=== PATIENT | male | born 1935 | race Caucasian/White ===

== ENCOUNTER 2018-08-06 09:57 | Observation (INO) | payer MEDICARE, BC ==
[~2018-08-06] VITALS: Ht 177.8 cm; Wt 78.0 kg
[2018-08-06] MEDS ORDERED: METHOTREXATE2.5 MG PO (10:15)
[2018-08-06] MEDS ORDERED: BAYER CHEWABLE81 MG PO (10:15)
[2018-08-06] MEDS ORDERED: ALTACE10 MG PO (10:16)
[2018-08-06] MEDS ORDERED: FOLIC ACID1 MG PO (10:16)
[2018-08-06] MEDS ORDERED: HYDROCHLOROTHIA25 MG PO (10:17)
[2018-08-06] MEDS ORDERED: ARICEPT23 MG PO (10:17)
[2018-08-06] MEDS ORDERED: ISOSORBIDE MONO30 M1 PO (10:17)
[2018-08-06] MEDS ORDERED: VITAMIN D31000 UNIT PO (10:18)
[2018-08-06] MEDS ORDERED: GLUCOSAMINE HC500 MG PO (10:18)
[2018-08-06] MEDS ORDERED: MULTI-DAY VITAM1 TAB (10:18)
[2018-08-06] MEDS ORDERED: POTASSIUM99 M1 PO (10:19)
[2018-08-06 10:21] LABS: HEMATOCRIT 38.2 % (42.0-54.0); HEMOGLOBIN 12.9 g/dL (13.5-17.5); IMMATURE GRANULOCYTES 0.3 % (0-5); MCH 33.4 pg (26.0-34.0); MCHC 33.8 g/dL (31.0-37.0); MEAN PLATELET VOLUME 9.9 fL (7.4-10.4); PLATELET COUNT 217 10x3/uL (130-400); RBC 3.86 10x6/uL (4.20-6.10); RDW 13.8 % (11.5-14.5); WBC 5.8 10x3/uL (4.8-10.8)
[2018-08-06 10:39] LABS: ALBUMIN 3.2 g/dL (3.4-5.0); ALKALINE PHOSPHATASE 80 U/L (46-116); ALT (SGPT) 24 U/L (10-68); BILIRUBIN - TOTAL 0.44 mg/dL (0.2-1.3); CALC OSMOLALITY 271 mosm/kg (275-300); CALCIUM 8.8 mg/dL (8.5-10.1); CARBON DIOXIDE 28.2 mmol/L (21.0-32.0); CHLORIDE - SERUM 99 mmol/L (98-107); CREATININE - SERUM 0.8 mg/dL (0.6-1.3); GLUCOSE 82 mg/dL (74-106); POTASSIUM - SERUM 3.9 mmol/L (3.5-5.1); PROTEIN - SERUM 6.2 g/dL (6.4-8.2); SODIUM 135 mmol/L (136-145); UREA NITROGEN 22 mg/dL (7-18); eGFR NON AFRICAN AMERICAN > 90 mL/min (90-120)
[2018-08-06 10:40] LABS: APTT 29.3 SECONDS (22.8-39.4); INR 1.21 (0.85-1.17); PROTIME 14.8 SECONDS (11.6-15.0)
--- NOTE | 2018-08-06 10:40 | NUR ---
TPA NOT ADMINISTERED AT THIS TIME PER MYRIAM SEPULVEDA. PT STABLE, DENIES NEEDS. CALL LIGHT WITHIN REACH. FOR FURTHER INFORMATION REFER TO DOCTOR NOTE ABOUT MYRIAM.
[2018-08-06 10:50] LABS: CKMB 1.3 U/L (0.0-3.6); CREATINE KINASE 61 UL (21-232); MAGNESIUM - SERUM 1.8 mg/dL (1.8-2.4); THYROID STIMULATING HORMONE 2.17 uIU/mL (0.36-3.74)
[2018-08-06 10:51] LABS: TROPONIN-I < 0.017 ng/mL (0.000-0.060)
--- NOTE | 2018-08-06 11:01 | NUR ---
STROKE BAND [id number]
[2018-08-06 11:10] LABS: LYMPHOCYTES 16 % (15-50); MONOCYTES 14 % (2-11); NEUTROPHILS 70 % (40-80); PLATELET ESTIMATE NORMAL
[2018-08-06 11:41] VITALS: BP 100/72
[2018-08-06 12:20] VITALS: BP 102/62
--- NOTE | 2018-08-06 12:25 | NUR ---
PT GONE TO CT AT THIS TIME.
--- NOTE | 2018-08-06 13:16 | NUR ---
PT REPORT HANDED OFF TO FREDERIC, FLOOR NURSE ROOM [id number]. PT STABLE AT TRANSPORT.
--- NOTE | 2018-08-06 14:00 | NUR ---
RECEIVED PT FROM ER. POSSIBLE CVA. NO C/O PAIN. NO S/S OF ACUTE DISTRESS NOTED. ON 2L O2, NC. VITALS STABLE. T 98.0,HR 70, BP 130/77, R 18, O2 SAT 91% 2L NC. PT C/O BLURRED VISION, NUMBNESS AND RIGHT SIDED WEAKNESS. SYMPTOMS SEEMED TO HAVE RESOLVED. PT ALERT AND ORIENTED. AT BEDSIDE. HX OF DEMENTIA. IV TO LEFT FOREARM, SL, SITE PATENT WITHOUT REDNESS OR SWELLING. PT DENIES ANYTHING FURTHER AT THIS TIME. FALL PRECAUTION, ZAKI ALARM ON AND WORKING. CALL LIGHT IN REACH. WILL CONTINUE TO MONTIOR.
[2018-08-06 14:23] VITALS: BMI 24.7
[2018-08-06 16:49] VITALS: BP 113/67
[2018-08-06 17:13] LABS: CHOL - HDL RATIO 2.7 ratio (2.3-4.9); LDL-HDL RATIO 1.6 ratio (1.5-3.5)
--- NOTE | 2018-08-06 17:36 | NUR ---
PT RESTING IN BED, EYES OPEN. NO C/O PAIN. NO S/S OF ACUTE DISTRESS NOTED. AT BEDSIDE. PT DENIES ANYTHING FURTHER AT THIS TIME. CALL LIGHT IN REACH. WILL CONTINUE TO MONITOR.
[2018-08-06 21:34] VITALS: BP 134/79
--- NOTE | 2018-08-07 00:37 | NUR ---
A/OX4. BREATHING EVEN AND UNLABORED. AT BEDSIDE. RESITED IV TO LT F/A WITH 20GA FOR CONTRAST IMAGE. DENIES NEEDS. WILL CONTINUE POC.
--- NOTE | 2018-08-07 02:21 | NUR ---
ASSISTED PT TO SIDE OF BED TO USE URINAL. DENIES OTHER NEEDS. WILL CONTINUE POC.
[2018-08-07 06:18] LABS: BASOPHILS 0.2 % (0-2); EOSINOPHILS 2.5 % (0-7); HEMATOCRIT 37.5 % (42.0-54.0); HEMOGLOBIN 12.7 g/dL (13.5-17.5); IMMATURE GRANULOCYTES 0.2 % (0-5); LYMPHOCYTES 21.2 % (15-50); MCH 33.2 pg (26.0-34.0); MCHC 33.9 g/dL (31.0-37.0); MCV 97.9 fL (80.0-100.0); MONOCYTES 19.9 % (2-11); PLATELET COUNT 208 10x3/uL (130-400); RBC 3.83 10x6/uL (4.20-6.10); WBC 5.3 10x3/uL (4.8-10.8)
[2018-08-07 06:31] LABS: CALC OSMOLALITY 272 mosm/kg (275-300); CALCIUM 8.4 mg/dL (8.5-10.1); CARBON DIOXIDE 27.3 mmol/L (21.0-32.0); CHLORIDE - SERUM 101 mmol/L (98-107); CREATININE - SERUM 0.6 mg/dL (0.6-1.3); GLUCOSE 94 mg/dL (74-106); POTASSIUM - SERUM 3.6 mmol/L (3.5-5.1); SODIUM 136 mmol/L (136-145); UREA NITROGEN 16 mg/dL (7-18); eGFR NON AFRICAN AMERICAN > 90 mL/min (90-120)
[2018-08-07 08:45] VITALS: BP 143/81
--- NOTE | 2018-08-07 08:45 | NUR ---
PATIENT IN BED WITH NO COMPLAINTS OR SIGNS OF DISTRESS AT THIS TIME. IV INTACT. BSCDS ON AND WORKING. CALL LIGHT WITHIN REACH.
--- NOTE | 2018-08-07 12:30 | NUR ---
PATIENT SITTING UP IN BED EATING AT THIS TIME. NO COMPLAINTS OR SIGNS OF DISTRESS. IV INTACT. CALL LIGHT FRITZ LIMON.
[2018-08-07 12:47] VITALS: BP 132/72
--- NOTE | 2018-08-07 13:41 | MORECARE ---
CASE MANAGEMENT DISCHARGE SUMMARY PATIENT: TILA MCCARTY UNIT: [id number] ADM DATE: 08/06/18 AGE: 82 : 33 SEX: M ROOM/BED: D.2235 AUTHOR: ROLAND WOODALL PHYSICIAN: REFERRING PHYSICIAN: NILES MERCEDES MD DATE OF SERVICE: 08/07/18 Discharge Plan Patient Name: TILA MCCARTY Facility: [facility]:[place] : 1935 Planned Disposition: Home Anticipated Discharge Date: Discharge Date: Expected LOS: Initial Reviewer: [id number] Initial Review Date: 08/07/2018 Generated: 08/07/18 2:41 pm Coverage Notice Reviewer: [id number] - Nancy Fierro Notice Issued Date-Time: 08/07/2018 13:32 Notice Type: Medicare Outpatient Observation Notice Notice Delivered To: Family Member Relationship to Patient: Spouse Jockey'S Agent Name: Stella Delivery Method: HAND - Hand Delivered Shania Days: Prior Verbal Notification: Recipient Understood Notice: Yes Recipient Signature: Yes Med Rec Note Co-signed by Attending: Coverage Notice Comment: [place] explained, signed by per request, copy given, original placed in MR Patient Name: TILA MCCARTY Page 29923 at 1341 All edits/amendments must be made on the electronic document DICTATION DATE: 08/07/18 1341 HAND WINDER: ARABELLA 08/07/18 1341 RPT#: [id number] [place] DATE: STATUS: ADM IN [facility] [address] [place] [address] END OF REPORT
--- NOTE | 2018-08-07 13:48 | MORECARE ---
CASE MANAGEMENT DISCHARGE SUMMARY PATIENT: TILA MCCARTY UNIT: [id number] ADM DATE: 08/06/18 AGE: 82 : 33 SEX: M ROOM/BED: D.2235 AUTHOR: JOSE C,DOC PHYSICIAN: REFERRING PHYSICIAN: NILES MERCEDES MD DATE OF SERVICE: 08/07/18 Discharge Plan Patient Name: TILA MCCARTY Facility: [facility]:[place] : 1935 Planned Disposition: Home Anticipated Discharge Date: Discharge Date: Expected LOS: Initial Reviewer: [email or web address] Initial Review Date: 08/07/2018 Generated: 08/07/18 2:48 pm Comments DCP- Discharge Planning Updated by [email or web address]: Nancy Fierro on 08/07/18 12:[address] Patient Name: TILA MCCARTY Admission Status: ER Accout number: [id number] Admission Date: 08-06-2018 : 1935 Admission Diagnosis: Attending: NILES MERCEDES Current LOS: 1 Anticipated DC Date: Planned Disposition: Home Primary Insurance: MEDICARE A & B Discharge Planning Comments: CM met with patient and his to discuss discharge planning/needs. States he lives with his . He is independent with all ADL's. He has a cane, but does not use it. He no longer drives, his and friends drive him where he needs to go. I discussed availability of rehab, SNF and home health. He plans on returning home with his , declines home health. CM will continue to follow and assist with discharge planning/needs. Ophthalmic Medical Assistant: Nancy Fierro DCPIA - Discharge Planning Initial Assessment Updated by [id number]: Nancy Fierro on 08/07/18 1:44 pm * Is the patient Alert and Oriented? Yes * How many steps to enter\exit or inside your home? 0/0 * PCP Grazyna * Pharmacy [facility] [address] * Preadmission Environment Home with Family * ADLs Independent * Equipment Cane * List name and contact numbers for known caregivers / representatives who currently or will assist patient after discharge: Stella sawant - [phone] * Verbal permission to speak to the caregivers and representatives has been obtained from the patient. Yes * Community resources currently utilized None * Additional services required to return to the preadmission environment? No * Can the patient safely return to the preadmission environment? Yes * Has this patient been hospitalized within the prior 30 days at any hospital? No Coverage Notice Reviewer: [id number] Stas Fierro Notice Issued Date-Time: 08/07/2018 13:32 Notice Type: Medicare Outpatient Observation Notice Notice Delivered To: Family Member Relationship to Patient: Spouse Machine Lay Out Worker Name: Stella Delivery Method: HAND - Hand Delivered Shania Days: Prior Verbal Notification: Recipient Understood Notice: Yes Recipient Signature: Yes Med Rec Note Co-signed by Attending: Coverage Notice Comment: YOKO explained, signed by per request, copy given, original placed in MR Last DP export: 08/07/18 12:41 p Patient Name: TILA MCCARTY Page [id number] at 1348 All edits/amendments must be made on the electronic document DICTATION DATE: 08/07/187 IT SENIOR ANALYST: ARABELLA 08/07/18 1347 RPT#: [id number] DC DATE: STATUS: ADM IN [facility] [address] [place] [address] END OF REPORT
[2018-08-07 14:28] VITALS: Ht 177.8 cm; Wt 78.0 kg
[2018-08-07] MEDS ORDERED: ASPIRIN325 MG PO (16:48)
[2018-08-07 16:53] VITALS: BP 149/86
--- NOTE | 2018-08-07 18:04 | NUR ---
PATIENT AND RECIEVED DISCHARGE INSTRUCTIONS. VERBALIZED UNDERSTANDING, NO QUESTIONS AT THIS TIME. IV REMOVED WITH CATH TIP INTACT. CALL LIGHT WITHIN REACH. GETTING DRESSED ASSISTED BY AT THIS TIME.
--- NOTE | 2018-08-12 07:06 | MORECARE ---
CASE MANAGEMENT DISCHARGE SUMMARY PATIENT: TILA MCCARTY UNIT: [id number] ADM DATE: 08/06/18 AGE: 83 : 33 SEX: M ROOM/BED: D.2235 AUTHOR: JOSE CDOC PHYSICIAN: REFERRING PHYSICIAN: NILES MERCEDES MD DATE OF SERVICE: 08/12/18 Discharge Plan Patient Name: TILA MCCARTY Facility: [facility]:[place] : 1935 Planned Disposition: Home Anticipated Discharge Date: Discharge Date: 08/07/2018 Expected LOS: 0 Initial Reviewer: [email or web address] Initial Review Date: 08/07/2018 Generated: 08/12/18 8:06 am Comments DCP- Discharge Planning Updated by [email or web address]: Nancy Fierro on 08/07/18 12:[address] Patient Name: TILA MCCARTY Admission Status: ER Accout number: [id number] Admission Date: 08-06-2018 : 1935 Admission Diagnosis: Attending: NILES MERCEDES Current LOS: 1 Anticipated DC Date: Planned Disposition: Home Primary Insurance: MEDICARE A & B Discharge Planning Comments: CM met with patient and his to discuss discharge planning/needs. States he lives with his . He is independent with all ADL's. He has a cane, but does not use it. He no longer drives, his and friends drive him where he needs to go. I discussed availability of rehab, SNF and home health. He plans on returning home with his , declines home health. CM will continue to follow and assist with discharge planning/needs. Environmental Education Specialist: Nancy Fierro DCPIA - Discharge Planning Initial Assessment Updated by [id number]: Nancy Fierro on 08/07/18 1:44 pm * Is the patient Alert and Oriented? Yes * How many steps to enter\exit or inside your home? 0/0 * PCP Grazyna * Pharmacy [facility] [address] * Preadmission Environment Home with Family * ADLs Independent * Equipment Cane * List name and contact numbers for known caregivers / representatives who currently or will assist patient after discharge: Stella sawant - [phone] * Verbal permission to speak to the caregivers and representatives has been obtained from the patient. Yes * Community resources currently utilized None * Additional services required to return to the preadmission environment? No * Can the patient safely return to the preadmission environment? Yes * Has this patient been hospitalized within the prior 30 days at any hospital? No Coverage Notice Reviewer: [email or web address] Stas Fierro Notice Issued Date-Time: 08/07/2018 13:32 Notice Type: Medicare Outpatient Observation Notice Notice Delivered To: Family Member Relationship to Patient: Spouse Iron Setter Name: Stella Delivery Method: HAND - Hand Delivered Shania Days: Prior Verbal Notification: Recipient Understood Notice: Yes Recipient Signature: Yes Med Rec Note Co-signed by Attending: Coverage Notice Comment: YOKO explained, signed by per request, copy given, original placed in MR Last DP export: 08/07/18 12:48 p Patient Name: TILA MCCARTY Page [phone] at 0706 All edits/amendments must be made on the electronic document DICTATION DATE: 08/12/18705 NUCLEAR SPECTROSCOPIST: ARABELLA 08/12/18705 RPT#: [id number] DC DATE:08/07/18 STATUS: DIS IN [facility] [address] [place] [address] END OF REPORT
== END 2018-08-07 18:48 | disposition home or self-care (01) ==
LOC: EDBD 09:57 → D.ER 09:57 → OBSVTIME 11:32 → D.EDHOLD 11:32 → D.MS 12:55
PROVIDERS: Family Medicine; ADMIT Internal Medicine Nephrology
DX: I77.1 Stricture of artery (principal); G31.9 Degenerative disease of nervous system, unspecified; I25.10 Atherosclerotic heart disease of native coronary artery without angina pectoris; F03.90 Unspecified dementia, unspecified severity, without behavioral disturbance, psychotic disturbance, mood disturbance, and anxiety; Z86.73 Personal history of transient ischemic attack (TIA), and cerebral infarction without residual deficits

== ENCOUNTER 2019-01-16 01:29 | Inpatient (IN) | payer MEDICARE, BC ==
[~2019-01-16] VITALS: Ht 177.8 cm; Wt 72.7 kg
[2019-01-16] VITALS (7 sets, daily range): BP systolic 137–157; BP diastolic 74–98; Ht 177.8 cm; Wt 72.7 kg
[~2019-01-16 01:29] MED LIST: ALTACE10 MG PO; ARICEPT23 MG PO; ASPIRIN325 MG PO; BAYER CHEWABLE81 MG PO; FOLIC ACID1 MG PO; GLUCOSAMINE HC500 MG PO; HYDROCHLOROTHIA25 MG PO; ISOSORBIDE MONO30 M1 PO; METHOTREXATE2.5 MG PO; MULTI-DAY VITAM1 TAB PO; POTASSIUM99 M1 PO; VITAMIN D31000 UNIT PO
--- NOTE | 2019-01-16 02:20 | NUR ---
PT GIVEN URINAL.
[2019-01-16 02:28] LABS: BASOPHILS 0.2 % (0-2); EOSINOPHILS 1.1 % (0-7); HEMATOCRIT 38.2 % (42.0-54.0); HEMOGLOBIN 13.3 g/dL (13.5-17.5); IMMATURE GRANULOCYTES 0.2 % (0-5); LYMPHOCYTES 16.1 % (15-50); MCH 33.8 pg (26.0-34.0); MCHC 34.8 g/dL (31.0-37.0); MCV 97.2 fL (80.0-100.0); MEAN PLATELET VOLUME 9.2 fL (7.4-10.4); MONOCYTES 14.7 % (2-11); NEUTROPHILS 67.7 % (40-80); PLATELET COUNT 216 10x3/uL (130-400); RBC 3.93 10x6/uL (4.20-6.10); RDW 14.3 % (11.5-14.5); WBC 6.5 10x3/uL (4.8-10.8)
[2019-01-16 02:43] LABS: ALBUMIN 3.4 g/dL (3.4-5.0); ALKALINE PHOSPHATASE 87 U/L (46-116); ALT (SGPT) 30 U/L (10-68); BILIRUBIN - TOTAL 0.47 mg/dL (0.2-1.3); CALC OSMOLALITY 265 mosm/kg (275-300); CALCIUM 8.4 mg/dL (8.5-10.1); CARBON DIOXIDE 27.6 mmol/L (21.0-32.0); CHLORIDE - SERUM 100 mmol/L (98-107); CREATININE - SERUM 0.6 mg/dL (0.6-1.3); GLUCOSE 94 mg/dL (74-106); POTASSIUM - SERUM 4.3 mmol/L (3.5-5.1); SODIUM 131 mmol/L (136-145); UREA NITROGEN 22 mg/dL (7-18); eGFR NON AFRICAN AMERICAN > 90 mL/min (90-120)
[2019-01-16 02:49] LABS: CREATINE KINASE 84 UL (21-232); PRO BNP 165 pg/mL (0-450); TROPONIN-I 0.026 ng/mL (0.000-0.060)
[2019-01-16] MEDS ORDERED: TYLENOL W/CODEI1 TAB PO (03:09)
--- NOTE | 2019-01-16 03:18 | NUR ---
PT GIVEN WARM BLANKETS.
--- NOTE | 2019-01-16 04:43 | NUR ---
PT RESTING, RR EVEN AND UNLABORED, VSS, FAMILY AT BEDSIDE. WILL CONTINUE TO MONITOR.
--- NOTE | 2019-01-16 05:39 | NUR ---
PT ASSISTED UP TO SIT ON SIDE OF BED TO USE URINAL.
[2019-01-16 05:42] LABS: APPEARANCE CLEAR (CLEAR); BILIRUBIN NEGATIVE (NEGATIVE); COLOR YELLOW (YELLOW); GLUCOSE NEGATIVE (NEGATIVE); KETONE NEGATIVE (NEGATIVE); NITRITE NEGATIVE (NEGATIVE); PROTEIN NEGATIVE (NEGATIVE); UROBILINOGEN NORMAL (NORMAL)
--- NOTE | 2019-01-16 07:11 | NUR ---
TRANSFER FROM ER BY STRETCHER. OREINTED TO ROOM. CALL LIGHT IN REACH. WILL CONT. PLAN OF CARE.
--- NOTE | 2019-01-16 09:40 | NUR ---
ASSISTED TO BSC. BM NOTED. BED ALRM ON AND WORKING. WILL CONT. TO MONITOR NEEDS.
[2019-01-16 13:01] LABS: % SATURATION 25 % (15-55); IRON 68 ug/dl (35-150); TOTAL IRON BIND CAPACITY 264 ug/dl (260-445); UNSAT IRON BIND CAPACITY 196 ug/dl (150-375)
--- NOTE | 2019-01-16 13:16 | NUR ---
TELEMETRY SR NOTED.
--- NOTE | 2019-01-16 13:34 | NUR ---
Rehab Note- Acute Inpatient Rehab prescreen order received. The patient is a new admit and luis has pending Evals and acute orders at this time. Will continue to follow at this time. Thank you for this referral! Angela Bose RN CLinical Liaison, [facility]
[2019-01-16 13:39] LABS: CHOL - HDL RATIO 2.6 ratio (2.3-4.9); CHOLESTEROL, TOTAL 177 mg/dL (0-200); FERRITIN 149 ng/mL (3-244); HDL CHOLESTEROL 69 mg/dL (32-96); LDL CHOLESTEROL 102 mg/dL (0-100); LDL-HDL RATIO 1.5 ratio (1.5-3.5); TRIGLYCERIDE 33 mg/dL (30-200)
--- NOTE | 2019-01-16 13:59 | NUR ---
PT AT FOR EVALUATION. WILL CONT. PLAN OF CARE.
[2019-01-16 14:07] LABS: CREATINE KINASE 155 UL (21-232); TROPONIN-I 0.022 ng/mL (0.000-0.060)
--- NOTE | 2019-01-16 17:05 | MORECARE ---
CASE MANAGEMENT DISCHARGE SUMMARY PATIENT: TILA MCCARTY UNIT: [id number] ADM DATE: 01/16/19 AGE: 83 : 33 SEX: M ROOM/BED: D.2120 AUTHOR: ROLAND WOODALL PHYSICIAN: REFERRING PHYSICIAN: ARNOLD MILES MD DATE OF SERVICE: 01/16/19 Discharge Plan Patient Name: TILA MCCARTY [facility] [facility] 1935 Planned Disposition: Inpatient Rehab Anticipated Discharge Date: Discharge Date: Expected LOS: Initial Reviewer: [id number] Initial Review Date: 01/16/2019 Generated: 01/16/19 6:05 pm DCPIA - Discharge Planning Initial Assessment Updated by [id number]: Rohit Guerrier on 01/16/19 5:04 pm * Is the patient Alert and Oriented? Yes * How many steps to enter\exit or inside your home? NONE * PCP DR. CLINTON * Pharmacy [facility] ON * Preadmission Environment Home with Family * ADLs Independent * Equipment Cane Rolling Walker * Other Equipment 3 WHEELED WALKER NO MEDICAL EQUIPMENT PROVIDER PREFERENCE * List name and contact numbers for known caregivers / representatives who currently or will assist patient after discharge: JEFFERSON MCCARTY, SPOUSE, * Verbal permission to speak to the caregivers and representatives has been obtained from the patient. N/A * Community resources currently utilized Private Duty Care * Please name any agencies selected above. [employer], DAYS PER WEEK, 3-4 HOURS. * Additional services required to return to the preadmission environment? Yes * Can the patient safely return to the preadmission environment? Yes * Has this patient been hospitalized within the prior 30 days at any hospital? No Patient Name: TILA MCCARTY Page [id number] at 1705 All edits/amendments must be made on the electronic document DICTATION DATE: 01/16/191703 LAST SORTER: ARABELLA 01/16/191703 RPT#: [id number] DC DATE: STATUS: ADM IN [facility] [address] [place] [address] END OF REPORT
--- NOTE | 2019-01-16 17:13 | MORECARE ---
CASE MANAGEMENT DISCHARGE SUMMARY PATIENT: TILA MCCARTY UNIT: [id number] ADM DATE: 01/16/19 AGE: 83 : 33 SEX: M ROOM/BED: D.2120 AUTHOR: JOSE C,DOC PHYSICIAN: REFERRING PHYSICIAN: ARNOLD MILES MD DATE OF SERVICE: 01/16/19 Discharge Plan Patient Name: TILA MCCARTY [facility] [facility] 1935 Planned Disposition: Inpatient Rehab Anticipated Discharge Date: Discharge Date: Expected LOS: Initial Reviewer: [email or web address] Initial Review Date: 01/16/2019 Generated: 01/16/19 6:12 pm Comments DCP- Discharge Planning Updated by [email or web address]: Rohit Temple on 01/16/19 4:[address] Patient Name: TILA MCCARTY Encounter No: [id number] : 1935 Primary Insurance: MEDICARE A & B Anticipated DC Date: Planned Disposition: Inpatient Rehab External Planned Provider: [facility] DCP follow-up note: CM RECIEVED ORDER FOR INPATIENT REHAB PRESCEENING. CM MET WITH PT IN ROOM TO DISCUSS DISCHARGE PLANNING AND NEEDS. PT REPORTS LIVING AT HOME INDEPENDENTLY WITH HIS . PT HAS CANE AND THREE WHEELED WALKER WITH NO MEDICAL EQUIPMENT PROVIDER PRFERENCE. PT HAS NO OUTSIDE SERVICES ASSISTING IN THE HOME OTHER THAN PERSONAL CARE THAT HIS HIRES TO ASSIST PT WHILE SHE PLAYS BRIGE THREE DAYS PER WEEK. CM DISCUSSED AVAILABILITY OF HOME HEALTH, REHAB SERVICES AND MEDICAL EQUIPMENT. PT WOULD LIKE REHAB AT [facility]. CM WAITING RESULTS OF INPATIENT REHAB PRESCREENING AND ADMISSION DETERMINATION. ROHIT TEMPLE CASE ETTA DCPIA - Discharge Planning Initial Assessment Updated by [email or web address]: Rohit Temple on 01/16/19 5:04 pm * Is the patient Alert and Oriented? Yes * How many steps to enter\exit or inside your home? NONE * PCP DR. CLINTON * Pharmacy [facility] ON * Preadmission Environment Home with Family * ADLs Independent * Equipment Cane Rolling Walker * Other Equipment 3 WHEELED WALKER NO MEDICAL EQUIPMENT PROVIDER PREFERENCE * List name and contact numbers for known caregivers / representatives who currently or will assist patient after discharge: JEFFERSON MCCARTY, SPOUSE, * Verbal permission to speak to the caregivers and representatives has been obtained from the patient. N/A * Community resources currently utilized Private Duty Care * Please name any agencies selected above. [employer], DAYS PER WEEK, 3-4 HOURS. * Additional services required to return to the preadmission environment? Yes * Can the patient safely return to the preadmission environment? Yes * Has this patient been hospitalized within the prior 30 days at any hospital? No Last DP export: 01/16/19 4:05 p Patient Name: TILA MCCARTY Page [id number] at 1713 All edits/amendments must be made on the electronic document DICTATION DATE: 01/16/191711 CATH LABORATORY TECHNICIAN: ARABELLA 01/16/191711 RPT#: [id number] DC DATE: STATUS: ADM IN [facility] [address] [place] [address] END OF REPORT
[2019-01-16 19:17] LABS: CKMB 2.6 U/L (0.0-3.6); CREATINE KINASE 137 UL (21-232); TROPONIN-I 0.029 ng/mL (0.000-0.060)
[2019-01-17] VITALS: BP 148/74
[2019-01-17 01:35] LABS: BASOPHILS 0.2 % (0-2); EOSINOPHILS 1.4 % (0-7); HEMATOCRIT 37.3 % (42.0-54.0); IMMATURE GRANULOCYTES 0.2 % (0-5); LYMPHOCYTES 18.1 % (15-50); MCH 33.5 pg (26.0-34.0); MCHC 34.9 g/dL (31.0-37.0); MCV 96.1 fL (80.0-100.0); MEAN PLATELET VOLUME 9.3 fL (7.4-10.4); MONOCYTES 19.3 % (2-11); NEUTROPHILS 60.8 % (40-80); PLATELET COUNT 222 10x3/uL (130-400); RBC 3.88 10x6/uL (4.20-6.10); RDW 14.2 % (11.5-14.5); WBC 5.9 10x3/uL (4.8-10.8)
[2019-01-17 01:53] LABS: ALBUMIN 3.2 g/dL (3.4-5.0); ALKALINE PHOSPHATASE 80 U/L (46-116); ALT (SGPT) 29 U/L (10-68); BILIRUBIN - TOTAL 0.55 mg/dL (0.2-1.3); CALC OSMOLALITY 275 mosm/kg (275-300); CALCIUM 8.6 mg/dL (8.5-10.1); CARBON DIOXIDE 27.3 mmol/L (21.0-32.0); CHLORIDE - SERUM 103 mmol/L (98-107); CKMB 2.7 U/L (0.0-3.6); CREATINE KINASE 155 UL (21-232); CREATININE - SERUM 0.6 mg/dL (0.6-1.3); GLUCOSE 95 mg/dL (74-106); POTASSIUM - SERUM 4.2 mmol/L (3.5-5.1); PROTEIN - SERUM 5.9 g/dL (6.4-8.2); SODIUM 136 mmol/L (136-145); TROPONIN-I 0.034 ng/mL (0.000-0.060); UREA NITROGEN 25 mg/dL (7-18); eGFR NON AFRICAN AMERICAN > 90 mL/min (90-120)
[2019-01-17 04:00] VITALS: BP 160/84
--- NOTE | 2019-01-17 07:35 | NUR ---
ASSESSMENT COMPLETED. CONFUSED AT TIMES. BED ALARM ON. TELEMERTY SHOW SR 97. O2 AT 2 LM PER NC. SL TO LEFT FORE ARM. PT HAS ABRUISE TO RIGHT HIP AND A ABRASION TO RIGHT SIDE. DENIES ANY NEEDS. SR UP ZAKI ALARM ON.
[2019-01-17 09:33] VITALS: BP 172/97
--- NOTE | 2019-01-17 14:32 | NUR ---
LYING QUIETLY. FAMILY AT BEDSIDE. NO NEEDS VOICED
--- NOTE | 2019-01-17 14:34 | NUR ---
LYING QUIETLY. NO DISTRESS NOTED. WILL MONITOR
[2019-01-17 20:00] VITALS: BP 118/57
--- NOTE | 2019-01-17 20:14 | NUR ---
INITIAL ROUNDS AND ASSESSMENT COMPLETED. PT RESTING WITH NO DISTRESS. CPOC.
--- NOTE | 2019-01-17 21:15 | NUR ---
BEDTIME MEDS GIVEN. PT VERY STIFF, AWKWARD WITH MOVEMENT. ASSISTED TO USE URINAL TO VOID. BACK TO BED WITH COVERS STRAIGTENED. ZAKI ALARM IN PLACE.
[2019-01-18] VITALS: BP 134/77; BP 138/80
--- NOTE | 2019-01-18 03:30 | NUR ---
PT SITTING UP IN BED. ASSISTED TO USE URINAL TO VOID. CONFUSION. BED ALARM IN PLACE. CPOC.
[2019-01-18 05:38] LABS: BASOPHILS 0.2 % (0-2); EOSINOPHILS 2.6 % (0-7); HEMATOCRIT 37.8 % (42.0-54.0); IMMATURE GRANULOCYTES 0.2 % (0-5); LYMPHOCYTES 19.6 % (15-50); MCH 33.5 pg (26.0-34.0); MCHC 34.4 g/dL (31.0-37.0); MCV 97.4 fL (80.0-100.0); MEAN PLATELET VOLUME 9.4 fL (7.4-10.4); MONOCYTES 17.2 % (2-11); NEUTROPHILS 60.2 % (40-80); PLATELET COUNT 215 10x3/uL (130-400); RBC 3.88 10x6/uL (4.20-6.10); RDW 14.2 % (11.5-14.5); WBC 6.1 10x3/uL (4.8-10.8)
[2019-01-18 05:49] LABS: ALBUMIN 3.1 g/dL (3.4-5.0); ALKALINE PHOSPHATASE 61 U/L (46-116); ALT (SGPT) 29 U/L (10-68); BILIRUBIN - TOTAL 0.76 mg/dL (0.2-1.3); CALC OSMOLALITY 270 mosm/kg (275-300); CALCIUM 8.4 mg/dL (8.5-10.1); CARBON DIOXIDE 29.7 mmol/L (21.0-32.0); CHLORIDE - SERUM 101 mmol/L (98-107); CREATININE - SERUM 0.7 mg/dL (0.6-1.3); GLUCOSE 90 mg/dL (74-106); MAGNESIUM - SERUM 1.9 mg/dL (1.8-2.4); POTASSIUM - SERUM 3.6 mmol/L (3.5-5.1); PROTEIN - SERUM 5.6 g/dL (6.4-8.2); SODIUM 135 mmol/L (136-145); eGFR NON AFRICAN AMERICAN > 90 mL/min (90-120)
[2019-01-18 05:50] LABS: UREA NITROGEN 16 mg/dL (7-18)
--- NOTE | 2019-01-18 07:15 | NUR ---
RECEIVED PT IN BED EYES CLOSED RESP UNLABORED SKIN W/D COLOR WNL NAD NOTED
[2019-01-18 08:44] VITALS: BP 155/90
[2019-01-18 13:19] VITALS: BP 146/82
[2019-01-18 16:29] VITALS: BP 122/76
[2019-01-18 20:00] VITALS: BP 142/91
--- NOTE | 2019-01-18 20:01 | NUR ---
INITIAL ROUNDS COMPLETED AT 1910 HRS. PT DENIED ANY DISCOMFORT. ASSESSMENT COMPLETED AT 193 HRS. SR PER CM HR 73. PT ALERT, CONFUSED TO TIME AND SITUATION. IV TO LFA SL. O2 2LNC. LUNGS DIMINISHED IN BASES BILAT. BRUISE NOTED TO R HIP AND R BACK. ACTIVE BS. SR UP X2, CALL LIGHT WITHIN REACH AND BED ALRM ON.
--- NOTE | 2019-01-18 22:47 | NUR ---
PT RESTING WITH EYES CLOSED. RESP EVEN AND REGULAR. SR UP X2, CALL LIGHT WITHIN REACH AND BED ALARM.
[2019-01-19] VITALS: BP 140/79
--- NOTE | 2019-01-19 00:06 | NUR ---
PT VOIDED 100CC OF YELLOW URINE PER URINAL. REPOSITIONED IN BED FOR COMFORT. SR UP X2,CALL LIGHT WITHIN REACH AND BED ALARMON.
--- NOTE | 2019-01-19 01:52 | NUR ---
PT RESTING WITH EYES CLOSED. RESP EVEN AND REGULAR. SR UP X2, CALL LIGHT WITHIN REACH AND BED ALARM ON.
--- NOTE | 2019-01-19 04:10 | NUR ---
PT VOIDED 200CC VIA URINAL. DENIES ANY DISCOMFORT. SR UP X2, CALL LIGHT WITHIN REACH.
[2019-01-19 04:13] VITALS: BP 155/94
[2019-01-19 05:21] LABS: BASOPHILS 0.2 % (0-2); EOSINOPHILS 2.3 % (0-7); HEMOGLOBIN 12.9 g/dL (13.5-17.5); IMMATURE GRANULOCYTES 0.2 % (0-5); LYMPHOCYTES 19.9 % (15-50); MCH 33.6 pg (26.0-34.0); MCHC 34.9 g/dL (31.0-37.0); MCV 96.4 fL (80.0-100.0); MEAN PLATELET VOLUME 9.7 fL (7.4-10.4); MONOCYTES 17.7 % (2-11); NEUTROPHILS 59.7 % (40-80); PLATELET COUNT 205 10x3/uL (130-400); RBC 3.84 10x6/uL (4.20-6.10); WBC 5.7 10x3/uL (4.8-10.8)
--- NOTE | 2019-01-19 05:32 | NUR ---
VSS THROUGHOUT NIGHT. SR PER CM. PT DENIED ANY DISCOMFORT. NEEDS MET; WILL CONTINUE TO MONITOR.
[2019-01-19 05:42] LABS: ALKALINE PHOSPHATASE 64 U/L (46-116); ALT (SGPT) 29 U/L (10-68); BILIRUBIN - TOTAL 0.65 mg/dL (0.2-1.3); CALC OSMOLALITY 275 mosm/kg (275-300); CALCIUM 8.4 mg/dL (8.5-10.1); CARBON DIOXIDE 29.1 mmol/L (21.0-32.0); CHLORIDE - SERUM 103 mmol/L (98-107); CREATININE - SERUM 0.6 mg/dL (0.6-1.3); GLUCOSE 88 mg/dL (74-106); MAGNESIUM - SERUM 1.9 mg/dL (1.8-2.4); POTASSIUM - SERUM 4.1 mmol/L (3.5-5.1); PROTEIN - SERUM 5.8 g/dL (6.4-8.2); SODIUM 138 mmol/L (136-145); UREA NITROGEN 15 mg/dL (7-18); eGFR NON AFRICAN AMERICAN > 90 mL/min (90-120)
--- NOTE | 2019-01-19 07:18 | NUR ---
REPORT RECEIVED. WILL CONTINUE WITH POC. PT CURRENTLY LYING SEMI FOWLERS. CALL LIGHT W/I REACH. PT IS AAO BUT CONFUSED TO SITUATION AND UP WITH ASSIST. RR EVEN AND UNLABORED ON 2L 02. L.FOR PIV IS SALINE LOCKED. FALL PRECAUTIONS IN PLACE. PT DENIES ANY NEEDS AT THIS TIME. WILL CTM.
[2019-01-19 09:12] VITALS: BP 161/84
--- NOTE | 2019-01-19 09:56 | NUR ---
I have reviewed this patient and I concur with the Shift Assessment completed by the Licensed Practical Nurse today this shift.
[2019-01-19] MEDS ORDERED: LEVOFLOXACIN500 MG PO (13:46)
[2019-01-19] MEDS ORDERED: FLOMAX0.4 MG PO (13:46)
--- NOTE | 2019-01-19 14:55 | MORECARE ---
CASE MANAGEMENT DISCHARGE SUMMARY PATIENT: TILA MCCARTY UNIT: [id number] ADM DATE: 01/16/19 AGE: 83 : 33 SEX: M ROOM/BED: D.2120 AUTHOR: JOSE C,DOC PHYSICIAN: REFERRING PHYSICIAN: ARNOLD MILES MD DATE OF SERVICE: 01/19/19 Discharge Plan Patient Name: TILA MCCARTY [facility] [facility] 1935 Planned Disposition: Inpatient Rehab Anticipated Discharge Date: 01/19/19 Discharge Date: Expected LOS: 3 Initial Reviewer: [email or web address] Initial Review Date: 01/16/2019 Generated: 01/19/19 3:55 pm DCP- Discharge Planning Updated by [email or web address]: Rohit Guerrier on 01/16/19 4:[address] Patient Name: TILA MCCARTY Encounter No: [id number] : 1935 Primary Insurance: MEDICARE A & B Anticipated DC Date: Planned Disposition: Inpatient Rehab External Planned Provider: [facility] DCP follow-up note: CM RECIEVED ORDER FOR INPATIENT REHAB PRESCEENING. CM MET WITH PT IN ROOM TO DISCUSS DISCHARGE PLANNING AND NEEDS. PT REPORTS LIVING AT HOME INDEPENDENTLY WITH HIS . PT HAS CANE AND THREE WHEELED WALKER WITH NO MEDICAL EQUIPMENT PROVIDER PRFERENCE. PT HAS NO OUTSIDE SERVICES ASSISTING IN THE HOME OTHER THAN PERSONAL CARE THAT HIS HIRES TO ASSIST PT WHILE SHE PLAYS BRIGE THREE DAYS PER WEEK. CM DISCUSSED AVAILABILITY OF HOME HEALTH, REHAB SERVICES AND MEDICAL EQUIPMENT. PT WOULD LIKE REHAB AT [facility]. CM WAITING RESULTS OF INPATIENT REHAB PRESCREENING AND ADMISSION DETERMINATION. MICHELLE BANUELOS DCPIA - Discharge Planning Initial Assessment Updated by [id number]: Rohit Guerrier on 01/16/19 5:04 pm * Is the patient Alert and Oriented? Yes * How many steps to enter\exit or inside your home? NONE * PCP DR. CLINTON * Pharmacy [facility] [address] * Preadmission Environment Home with Family * ADLs Independent * Equipment Cane Rolling Walker * Other Equipment 3 WHEELED WALKER NO MEDICAL EQUIPMENT PROVIDER PREFERENCE * List name and contact numbers for known caregivers / representatives who currently or will assist patient after discharge: JEFFERSON MCCARTY, SPOUSE, * Verbal permission to speak to the caregivers and representatives has been obtained from the patient. N/A * Community resources currently utilized Private Duty Care * Please name any agencies selected above. [employer], DAYS PER WEEK, 3-4 HOURS. * Additional services required to return to the preadmission environment? Yes * Can the patient safely return to the preadmission environment? Yes * Has this patient been hospitalized within the prior 30 days at any hospital? No Coverage Notice Reviewer: [id number] Stas Guerrier Notice Issued Date-Time: 01/19/2019 14:15 Notice Type: IM Discharge Notice Notice Delivered To: Family Member Relationship to Patient: Spouse Surfacer Name: jefferson mccarty Delivery Method: HAND - Hand Delivered Shania Days: Prior Verbal Notification: Recipient Understood Notice: Yes Recipient Signature: Yes Med Rec Note Co-signed by Attending: Coverage Notice Comment: Last DP export: 01/16/19 4:12 p Patient Name: TILA MCCARTY Page [phone] at 1455 All edits/amendments must be made on the electronic document DICTATION DATE: 01/19/19 1452 APPRENTICE ARCHITECT: ARABELLA 01/19/19 1451 RPT#: [id number] DC DATE: STATUS: ADM IN [facility] [address] [place] [address] END OF REPORT
--- NOTE | 2019-01-19 15:05 | MORECARE ---
CASE MANAGEMENT DISCHARGE SUMMARY PATIENT: TILA MCCARTY UNIT: [id number] ADM DATE: 01/16/19 AGE: 83 : 33 SEX: M ROOM/BED: D.2120 AUTHOR: ROLAND WOODALL PHYSICIAN: REFERRING PHYSICIAN: ARNOLD MILES MD DATE OF SERVICE: 01/19/19 Discharge Plan Patient Name: TILA MCCARTY [facility] [facility] 1935 Planned Disposition: Inpatient Rehab Anticipated Discharge Date: 01/19/19 Discharge Date: Expected LOS: 3 Initial Reviewer: [id number] Initial Review Date: 01/16/2019 Generated: 01/19/19 4:04 pm Comments DCP- Discharge Planning Updated by [email or web address]: Rohit Temple on 01/19/19 2:[address] Patient Name: TILA MCCARTY Encounter No: [id number] : 1935 Primary Insurance: MEDICARE A & B Anticipated DC Date: 01-19-2019 Planned Disposition: Inpatient Rehab External Planned Provider: [facility] INPATIENT REHAB DCP follow-up note: CM SPOKE TO [facility]IS[facility] OF INPATIENT REHAB, THEY PLAN TO ACCEPT PT TODAY FOR REHAB. KAYLEE RUBIO NOTIFIED. PT AND SPOUSE NOTIFIED, BOTH IN AGREEMENT WITH DISCHARGE TO INPATIENT REHAB AT [place]. IMPORTANT MESSAGE FROM MEDICARE PROVIDED AND EXPLAINED. [facility] INPATIENT REHAB TO CONTACT MED 2 NURSE WITH ROOM NUMBER WHEN READY TO ACCEPT PT AND NURSE REPORT. MICHELLE Will DCP- Discharge Planning Updated by [id number]: Rohit Temple on 01/16/19 4:[address] Patient Name: TILA MCCARTY Encounter No: [id number] : 1935 Primary Insurance: MEDICARE A & B Anticipated DC Date: Planned Disposition: Inpatient Rehab External Planned Provider: [facility] INPATIENT REHAB DCP follow-up note: CM RECIEVED ORDER FOR INPATIENT REHAB PRESCEENING. CM MET WITH PT IN ROOM TO DISCUSS DISCHARGE PLANNING AND NEEDS. PT REPORTS LIVING AT HOME INDEPENDENTLY WITH HIS . PT HAS CANE AND THREE WHEELED WALKER WITH NO MEDICAL EQUIPMENT PROVIDER PRFERENCE. PT HAS NO OUTSIDE SERVICES ASSISTING IN THE HOME OTHER THAN PERSONAL CARE THAT HIS HIRES TO ASSIST PT WHILE SHE PLAYS BRIGE THREE DAYS PER WEEK. CM DISCUSSED AVAILABILITY OF HOME HEALTH, REHAB SERVICES AND MEDICAL EQUIPMENT. PT WOULD LIKE REHAB AT [facility] INPATIENT REHAB. CM WAITING RESULTS OF INPATIENT REHAB PRESCREENING AND ADMISSION DETERMINATION. ROHIT TEMPLE, CASE MANAGEMENT DCPIA - Discharge Planning Initial Assessment Updated by [id number]: Rohit Temple on 01/16/19 5:04 pm * Is the patient Alert and Oriented? Yes * How many steps to enter\exit or inside your home? NONE * PCP DR. CLINTON * Pharmacy [facility] ON * Preadmission Environment Home with Family * ADLs Independent * Equipment Cane Rolling Walker * Other Equipment 3 WHEELED WALKER NO MEDICAL EQUIPMENT PROVIDER PREFERENCE * List name and contact numbers for known caregivers / representatives who currently or will assist patient after discharge: JEFFERSON MCCARTY, SPOUSE, * Verbal permission to speak to the caregivers and representatives has been obtained from the patient. N/A * Community resources currently utilized Private Duty Care * Please name any agencies selected above. PRIVATE PAY CAREGIVER, DAYS PER WEEK, 3-4 HOURS. * Additional services required to return to the preadmission environment? Yes * Can the patient safely return to the preadmission environment? Yes * Has this patient been hospitalized within the prior 30 days at any hospital? No Coverage Notice Reviewer: [id number] - Rohit Temple Notice Issued Date-Time: 01/19/2019 14:15 Notice Type: IM Discharge Notice Notice Delivered To: Family Member Relationship to Patient: Spouse Microchip Specialist Name: jefferson mccarty Delivery Method: HAND - Hand Delivered Shania Days: Prior Verbal Notification: Recipient Understood Notice: Yes Recipient Signature: Yes Med Rec Note Co-signed by Attending: Coverage Notice Comment: Last DP export: 01/19/19 1:55 p Patient Name: TILA MCCARTY Page [id number] at 1505 All edits/amendments must be made on the electronic document DICTATION DATE: 01/19/191503 EDUCATION NURSE: ARABELLA 01/19/19 1504 RPT#: [id number] DC DATE: STATUS: ADM IN [facility] [address] [place] [address] END OF REPORT
--- NOTE | 2019-01-19 15:18 | NUR ---
OT NOTE: BED MOB WITH MIN ASSIST; IN ROOM AMBULATION WITH WALKER AND MIN ASSIST; SET UP WITH FEEDING AND FACE WASHING. INCREASED ASSIST WITH TOILET HYGIENE. SUZANNA MARS, OTR/L
--- NOTE | 2019-01-19 16:51 | NUR ---
PT TRANSFERED TO INPATIENT REHAB VIA WHEELCHAIR. PT SIGNED PROPER DISCHARGE INSTRUCTION AND REMOVED ALL VALUABLES FROM THE ROOM. PIV REMOVED WITH CATHETER TIP FULLY INTACT.
== END 2019-01-19 16:52 | DRG 884 ==
LOC: D.ER 01:29 → D.M2 05:21
PROVIDERS: Emergency Medicine; Family Medicine Adult Medicine; ADMIT Family Medicine; ATTEND Family Medicine
DX: R54 Age-related physical debility (principal); N39.0 Urinary tract infection, site not specified; W19.XXXA Unspecified fall, initial encounter; Z86.73 Personal history of transient ischemic attack (TIA), and cerebral infarction without residual deficits; F03.90 Unspecified dementia, unspecified severity, without behavioral disturbance, psychotic disturbance, mood disturbance, and anxiety; M06.9 Rheumatoid arthritis, unspecified; I10 Essential (primary) hypertension; I08.1 Rheumatic disorders of both mitral and tricuspid valves; I65.23 Occlusion and stenosis of bilateral carotid arteries

== ENCOUNTER 2019-01-19 16:54 | Inpatient (IN) | payer MEDICARE, BC ==
[~2019-01-19] VITALS: Ht 177.8 cm; Wt 74.8 kg
[~2019-01-19 16:54] MED LIST changes: +FLOMAX0.4 MG PO; +LEVOFLOXACIN500 MG PO; +TYLENOL W/CODEI1 TAB PO
[2019-01-19 17:57] VITALS: BP 151/81; BMI 23.7
[2019-01-19 19:57] VITALS: BP 147/79
--- NOTE | 2019-01-19 20:00 | NUR ---
PATIENT RECEIVED SITTING UP IN BED WATCHING TV. PATIENT VITAL SIGNS & ASSESSMENT DONE. NO C/O PAIN OR DISTRSSS. PATIENT TOILETED, URINE & BM. PATIENT RETURNED TO BED. URINAL AT BEDSIDE. BEDSIDE TABLE & CALL LIGHT WITHIN REACH. WILL CONTINUE TO MONITOR.
--- NOTE | 2019-01-20 01:51 | NUR ---
PATIENT EYES CLOSED. RESPIRATIONS 18 & EVEN. BED LOW. ALARM ON. URINAL & CALL LIGHT WITHIN REACH. WILL CONTINUE TO MONITOR.
--- NOTE | 2019-01-20 03:40 | NUR ---
THIS NURSE DOING MY ROUNDS FOUND PATIENT LYING IN EMPTY BED. PATIENT CONFUSED, WET & REMOVED FROM WRONG BED INTO HIS BED. PATIENT BRIEF ON, COVERED UP. CALL LIGHT WITHIN REACH. WILL CONTINUE TO MONITOR.
[2019-01-20 07:08] LABS: BASOPHILS 0.2 % (0-2); EOSINOPHILS 1.2 % (0-7); HEMATOCRIT 37.3 % (42.0-54.0); LYMPHOCYTES 18.4 % (15-50); MCH 33.6 pg (26.0-34.0); MCHC 34.9 g/dL (31.0-37.0); MCV 96.4 fL (80.0-100.0); MEAN PLATELET VOLUME 9.2 fL (7.4-10.4); MONOCYTES 15.9 % (2-11); NEUTROPHILS 64.3 % (40-80); PLATELET COUNT 196 10x3/uL (130-400); RBC 3.87 10x6/uL (4.20-6.10); RDW 14.1 % (11.5-14.5); WBC 5.2 10x3/uL (4.8-10.8)
[2019-01-20 07:33] LABS: CALC OSMOLALITY 276 mosm/kg (275-300); CALCIUM 8.5 mg/dL (8.5-10.1); CARBON DIOXIDE 28.6 mmol/L (21.0-32.0); CHLORIDE - SERUM 103 mmol/L (98-107); CREATININE - SERUM 0.6 mg/dL (0.6-1.3); GLUCOSE 87 mg/dL (74-106); POTASSIUM - SERUM 3.9 mmol/L (3.5-5.1); SODIUM 139 mmol/L (136-145); UREA NITROGEN 12 mg/dL (7-18); eGFR NON AFRICAN AMERICAN > 90 mL/min (90-120)
[2019-01-20 08:00] VITALS: BP 174/87
--- NOTE | 2019-01-20 10:49 | NUR ---
PT AM MEDS ADMINISTERED. PT SITTINGUP IN WHEELCHAIR AND DENIES NEEDS. WCTM.
--- NOTE | 2019-01-20 11:45 | NUR ---
PATIENT ADMITTED TO REHAB FROM ACUTE FLOOR. DR. CLINTON IS HIS PCP. DME AT HOME IS A CANE AND ROLLING WALKER. DISCHARGE PLANS ARE FOR PATIENT TO RETURN HOME WITH SPOUSE HE HAS A CAREGIVER TO ASSIT HIM. WILL CONTINUE TO FOLLOW WITH PATIENT.
[2019-01-20 12:16] VITALS: Ht 177.8 cm; Wt 74.8 kg
--- NOTE | 2019-01-20 19:30 | NUR ---
PT NOTED UP ON THE TOILET. SPOUSE IS AT HIS SIDE. NO NEEDS VOICED.
[2019-01-20 20:00] VITALS: BP 161/82
--- NOTE | 2019-01-20 22:24 | NUR ---
PT RESTING IN BED WATCHING TV. NO ACUTE DISTRESS NOTED.
--- NOTE | 2019-01-21 01:01 | NUR ---
RESTING IN BED WITH EYES CLOSED. USING URINAL PRN.
--- NOTE | 2019-01-21 02:17 | NUR ---
RESTING IN BED WITH RESPIRATIONS UNLABORED. NO DISTRESS NOTED. CALL LIGHT IN REACH.
--- NOTE | 2019-01-21 05:46 | NUR ---
PT RESTING IN BED WITH EYES CLOSED. NO ACUTE DISTRESS NOTED.
[2019-01-21 05:58] LABS: BASOPHILS 0.2 % (0-2); EOSINOPHILS 2.3 % (0-7); HEMATOCRIT 36.2 % (42.0-54.0); HEMOGLOBIN 12.6 g/dL (13.5-17.5); IMMATURE GRANULOCYTES 0.2 % (0-5); LYMPHOCYTES 20.3 % (15-50); MCH 33.6 pg (26.0-34.0); MCHC 34.8 g/dL (31.0-37.0); MCV 96.5 fL (80.0-100.0); MEAN PLATELET VOLUME 9.5 fL (7.4-10.4); MONOCYTES 18.4 % (2-11); NEUTROPHILS 58.6 % (40-80); PLATELET COUNT 198 10x3/uL (130-400); RBC 3.75 10x6/uL (4.20-6.10); RDW 14.2 % (11.5-14.5); WBC 5.2 10x3/uL (4.8-10.8)
[2019-01-21 06:21] LABS: CALC OSMOLALITY 273 mosm/kg (275-300); CALCIUM 8.3 mg/dL (8.5-10.1); CARBON DIOXIDE 29.4 mmol/L (21.0-32.0); CHLORIDE - SERUM 102 mmol/L (98-107); CREATININE - SERUM 0.6 mg/dL (0.6-1.3); GLUCOSE 86 mg/dL (74-106); POTASSIUM - SERUM 3.5 mmol/L (3.5-5.1); SODIUM 137 mmol/L (136-145); UREA NITROGEN 16 mg/dL (7-18); eGFR NON AFRICAN AMERICAN > 90 mL/min (90-120)
[2019-01-21 08:00] VITALS: BP 156/84
--- NOTE | 2019-01-21 14:50 | NUR ---
CARE TEAM MEETING: PATIENT IS NEW TO UNIT AND WILL BE RA AT NEXT MEETING. WILL CONTNUE TO FOLLOW WITH PATIENT.
[2019-01-21 20:40] VITALS: BP 112/63
--- NOTE | 2019-01-22 04:35 | NUR ---
PT IN BED LOWEST POSITION, EYES CLOSED, AROUSES EASILY TO VOICE, NO NEEDS NOTED, RESPIRATIONS EVEN AND UNLABORED, FLUIDS AND CALL LIGHT WITHIN REACH
[2019-01-22 08:00] VITALS: BP 148/77
--- NOTE | 2019-01-22 08:00 | NUR ---
SHIFT ASSMT COMPLETED.
--- NOTE | 2019-01-22 11:13 | NUR ---
Nutrition Follow Up: Chart reviewed Diet: AHA PO Intake: 72% meal avg BM: 01/21/19 Labs reviewed Meds noted including MV Rec continue current diet. RD following.
--- NOTE | 2019-01-22 12:00 | NUR ---
SITTING UP EATING LUNCH.
[2019-01-22 22:49] VITALS: BP 96/58
--- NOTE | 2019-01-22 23:36 | NUR ---
LATE ENTRY FOR 2129 PT UP IN CHAIR TOILETED, MARIBETH PUT ON AT 2129, MEDS GIVEN, NO OTHER NEEDS NOTED, FLUIDS AND CALL LIGHT WITHIN REACH, BM DURING TOILETING
--- NOTE | 2019-01-23 06:34 | NUR ---
TRIED WEANING PT OFF O2 SATS CONTINUE TO DROP BELOW 88, EVEN ON O2 SATS WERE BARELY 90% .
[2019-01-23 06:50] LABS: BASOPHILS 0.4 % (0-2); EOSINOPHILS 2.3 % (0-7); HEMATOCRIT 36.2 % (42.0-54.0); HEMOGLOBIN 12.4 g/dL (13.5-17.5); IMMATURE GRANULOCYTES 0.2 % (0-5); LYMPHOCYTES 21.8 % (15-50); MCH 33.1 pg (26.0-34.0); MCHC 34.3 g/dL (31.0-37.0); MCV 96.5 fL (80.0-100.0); MEAN PLATELET VOLUME 9.7 fL (7.4-10.4); MONOCYTES 14.9 % (2-11); NEUTROPHILS 60.4 % (40-80); PLATELET COUNT 198 10x3/uL (130-400); RBC 3.75 10x6/uL (4.20-6.10); WBC 5.6 10x3/uL (4.8-10.8)
[2019-01-23 07:14] LABS: CALC OSMOLALITY 277 mosm/kg (275-300); CALCIUM 8.1 mg/dL (8.5-10.1); CARBON DIOXIDE 27.7 mmol/L (21.0-32.0); CHLORIDE - SERUM 102 mmol/L (98-107); CREATININE - SERUM 0.7 mg/dL (0.6-1.3); GLUCOSE 84 mg/dL (74-106); POTASSIUM - SERUM 3.5 mmol/L (3.5-5.1); SODIUM 138 mmol/L (136-145); UREA NITROGEN 20 mg/dL (7-18); eGFR NON AFRICAN AMERICAN > 90 mL/min (90-120)
[2019-01-23 08:31] VITALS: BP 146/63
[2019-01-23 19:20] VITALS: BP 123/67
--- NOTE | 2019-01-23 19:20 | NUR ---
RECEIVED REPORT. SITTING UP IN BED ALERT TO SELF, REORIENTED TO TIME AND PLACE. DENIES ANY PAIN OR NEEDS. VS STABLE, SHIFT ASSESSMENT COMPLETE. CONTINUES ON 2L VIA NC. CALL LIGHT AND URINAL WITHIN REACH, FALL PRECAUTIONS IN PLACE. WILL CONTINUE TO MONITOR
--- NOTE | 2019-01-24 00:18 | NUR ---
QUIET HOURS. LYING IN BED SUPINE EYES CLOSED RESTING. RR EVEN AND UNLABORED. CONTINUES ON 2L VIA NC. WILL CONTINUE TO MONITOR
--- NOTE | 2019-01-24 02:46 | NUR ---
LYING IN BED SUPINE EYES CLOSED RESTING. RR EVEN AND UNLABORED. WILL CONTINUE TO MONITOR
[2019-01-24 08:00] VITALS: BP 172/88
--- NOTE | 2019-01-24 16:05 | NUR ---
SITTING UP IN WC IN ROOM TALKING WITH ROOM MATE. CALL LIGHT IN REACH
--- NOTE | 2019-01-24 17:52 | NUR ---
SITTING UP EATING SUPPER. IN ROOM WITH PT.
--- NOTE | 2019-01-24 19:19 | NUR ---
RECIEVED UP IN W/C WATCHING TV.ALERT AND ORIENTED TO PERSON AND PLACE. REQUIRES ASSIST TO TOILET. REFUSES O2 AT THIS TIME AND STATES " I WEAR IT WHEN I NEED IT". LUNG SOUND CTA BILATERALLY. ABSX4. NO EDEMA OBSERVED. DENIES ANY NEEDS AT THIS TIME.
[2019-01-24 22:20] VITALS: BP 137/86
[2019-01-25 07:30] VITALS: BP 139/84
--- NOTE | 2019-01-25 14:46 | NUR ---
RESTING QUIETLY IN BED. JUST FINISHED SHOWER. JUST LEFT. INCONT OF STOOL IN BRIEF THIS AM. DENIES PAIN OR INCREASED SOB.CALL LIGHT IN REACH
[2019-01-25 19:14] VITALS: BP 106/69
--- NOTE | 2019-01-25 19:14 | NUR ---
GREETED PATIENT AND INTRODUCED MYSELF. PATIENT IS SITTING IN WHEELCHAIR. ASSISTED TO BED AND REPOSITIONED FOR COMFORT. CALL LIGHT IN REACH. VITALS OBTAINED.
--- NOTE | 2019-01-25 21:23 | NUR ---
PATIENT CLEANED OF INCONTINENT BM. COMPLETE LINEN CHANGE. PT. REPOSITIONED FOR COMFORT. CALL LIGHT IN REACH.
--- NOTE | 2019-01-26 03:40 | NUR ---
PATIENT CLEANED OF INCONTINENT BM. COMPLETE LINEN CHANGE. PATIENT REPOSITIONED FOR COMFORT. CALL LIGHT IN REACH.
[2019-01-26 07:14] LABS: CALC OSMOLALITY 275 mosm/kg (275-300); CALCIUM 8.3 mg/dL (8.5-10.1); CARBON DIOXIDE 31.2 mmol/L (21.0-32.0); CHLORIDE - SERUM 104 mmol/L (98-107); CREATININE - SERUM 0.6 mg/dL (0.6-1.3); GLUCOSE 87 mg/dL (74-106); SODIUM 138 mmol/L (136-145); UREA NITROGEN 16 mg/dL (7-18); eGFR NON AFRICAN AMERICAN > 90 mL/min (90-120)
[2019-01-26 07:16] LABS: HEMATOCRIT 35.7 % (42.0-54.0); HEMOGLOBIN 12.2 g/dL (13.5-17.5); MCH 33.2 pg (26.0-34.0); MCHC 34.2 g/dL (31.0-37.0); MCV 97.3 fL (80.0-100.0); MEAN PLATELET VOLUME 9.7 fL (7.4-10.4); PLATELET COUNT 210 10x3/uL (130-400); RBC 3.67 10x6/uL (4.20-6.10); RDW 14.1 % (11.5-14.5); WBC 5.6 10x3/uL (4.8-10.8)
[2019-01-26 08:00] VITALS: BP 172/87
[2019-01-26 08:49] LABS: EOSINOPHILS 3 % (0-7); LYMPHOCYTES 21 % (15-50); MONOCYTES 20 % (2-11); NEUTROPHILS 54 % (40-80); PLATELET ESTIMATE NORMAL; ROULEAUX OCC
--- NOTE | 2019-01-26 13:07 | NUR ---
SITTING UP IN WC IN ROOM. HAS BEEN INCONT OF STOOL TODAY. IS WEARING OXYGEN AT TIMES AND IS COOPERATIVE AND PLEASANT. DENIES PAIN
--- NOTE | 2019-01-26 14:27 | NUR ---
Nutrition follow-up: Diet: AHA PO intake ~83% average of last 9 meals Labs reviewed +BM PO intake good at this time RDN following.
--- NOTE | 2019-01-26 14:51 | NUR ---
WORKING WITH THERAPY
--- NOTE | 2019-01-26 19:15 | NUR ---
GREETED PATIENT AND INTRODUCED MYSELF. PATIENT IS LAYING IN BED IN SUPINE POSITION. O2 AT 2L IN USE VIA NC. DENIES ANY PAIN AT THIS TIME. CALL LIGHT IN REACH.
[2019-01-26 20:05] VITALS: BP 129/70
--- NOTE | 2019-01-27 00:23 | NUR ---
PATIENT RESTING QUIETLY WITH EYES CLOSED LAYING IN SUPINE POSITION. O2 AT 2L IN USE VIA NC. RESPIRAITONS EVEN. NO S/S OF DISTRESS. SR UP X 2. BED IN LOWEST POSITION. ALARM ON AND WORKING PROPERLY. CALL LIGHT IN REACH.
[2019-01-27 08:00] VITALS: BP 162/84
--- NOTE | 2019-01-27 08:00 | NUR ---
SHIFT ASSMT COMPLETED.UP OOB FOR BREAKFAST.
--- NOTE | 2019-01-27 12:00 | NUR ---
EATING LUNCH.DENIES NEEDS.
--- NOTE | 2019-01-27 19:46 | NUR ---
PATIENT RECEIVED SITTING UP IN BED WATCHING TV. ASSESSMENT & VITAL SIGNS DONE. NO C/O PAIN OR DISTRESS. BED LOW. ALARM ON. TABLE & CALL LIGHT WITHIN REACH. WILL CONTINUE TO MONITOR.
[2019-01-27 20:00] VITALS: BP 126/72
--- NOTE | 2019-01-28 00:05 | NUR ---
PATIENT EYES CLOSED. RESPIRATIONS 18 & EVEN. BED LOW. CALL LIGHT WITHIN REACH. WILL CONTINUE TO MONITOR.
--- NOTE | 2019-01-28 01:07 | NUR ---
I have reviewed this patient and I concur with the Shift Assessment completed by the Licensed Practical Nurse today this shift.
--- NOTE | 2019-01-28 04:08 | NUR ---
PATIENT EYES OPEN SAID "HELLO." PATIENT HAD NO NEEDS AT THIS TIME. BED LOW. ALARM ON. CALL LIGHT WITHIN REACH. WILL CONTINUE TO MONITOR.
[2019-01-28 07:21] LABS: CALC OSMOLALITY 273 mosm/kg (275-300); CALCIUM 8.1 mg/dL (8.5-10.1); CARBON DIOXIDE 30.7 mmol/L (21.0-32.0); CHLORIDE - SERUM 102 mmol/L (98-107); CREATININE - SERUM 0.6 mg/dL (0.6-1.3); GLUCOSE 83 mg/dL (74-106); POTASSIUM - SERUM 3.8 mmol/L (3.5-5.1); SODIUM 137 mmol/L (136-145); UREA NITROGEN 15 mg/dL (7-18); eGFR NON AFRICAN AMERICAN > 90 mL/min (90-120)
[2019-01-28 07:23] LABS: BASOPHILS 0.4 % (0-2); EOSINOPHILS 2.9 % (0-7); HEMATOCRIT 34.7 % (42.0-54.0); HEMOGLOBIN 12.1 g/dL (13.5-17.5); IMMATURE GRANULOCYTES 0.2 % (0-5); LYMPHOCYTES 19.4 % (15-50); MCH 33.8 pg (26.0-34.0); MCHC 34.9 g/dL (31.0-37.0); MCV 96.9 fL (80.0-100.0); MEAN PLATELET VOLUME 9.7 fL (7.4-10.4); MONOCYTES 19.6 % (2-11); NEUTROPHILS 57.5 % (40-80); PLATELET COUNT 197 10x3/uL (130-400); RBC 3.58 10x6/uL (4.20-6.10); RDW 14.1 % (11.5-14.5); WBC 5.1 10x3/uL (4.8-10.8)
[2019-01-28 07:59] VITALS: BP 170/88
--- NOTE | 2019-01-28 08:00 | NUR ---
shift assmt completed.
--- NOTE | 2019-01-28 10:32 | RHP ---
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 He has got chronic decreased motion of his left hip and left knee. He was admitted to the acute hospital for pelvic pain and inability to complete ADLs. X-rays were negative for any signs of fracture. Ultrasound showed no obvious DVT. He has been followed by physical and speech therapy during his stay. He is currently on telemetry. He is on some supplemental oxygen. He is usually not on this at home. He has got acute pain. He is on electrolyte protocol, gait disturbance, impaired mobility, deconditioning, debility, high risk for falls and self-care deficits. These are all barriers to his discharged home. Lives at home with his , was moderately independent with use of a rollator for his mobility and independent for his activities of daily living. He is currently mod assist to total assist for mobility and is min assist to max assist for ADLs. He and his would want for him to return home at his prior level of functioning or better after a stay here in the acute rehabilitation. COMORBIDITIES: Include inability to complete ADLs, history of CVA, history of TIA, valvular heart disease, hypertension, dementia, status post fall and pelvic pain. PAST MEDICAL HISTORY: Significant for CVA, hypertension, dementia, rheumatoid arthritis, TIA and valvular disease. PAST SURGICAL HISTORY: Please see previous charts. ALLERGIES: No known drug allergies. CURRENT MEDICATIONS: Include methotrexate, he takes 12.5 mg on Wednesdays; he is on Floranex 460 mg daily; Flomax 0.4 mg daily; Altace 10 mg daily; multivitamin daily; Levaquin 500 mg daily; isosorbide mononitrate extended release 30 mg daily; glucosamine 500 mg daily; he is on folic acid every day except Saturday, he is on 1 mg; he is on vitamin D 1000 units daily; aspirin 325 mg daily; Aricept 20 mg at bedtime; he has been on electrolyte protocol during his stay here. HABITS: No alcohol or tobacco use. FAMILY HISTORY: Noncontributory. SOCIAL HISTORY: The patient once again wants to return home with his . REVIEW OF SYSTEMS: GENERAL: He does complain of weakness and fatigue, worse since his previous HISTORY AND PHYSICAL [id number] TILA MCCARTY CVA. HEENT: He denies cold, cough, or congestion. CARDIOVASCULAR: He denies any chest pain. PHYSICAL EXAMINATION: VITAL SIGNS: Stable, afebrile. GENERAL: An elderly gentleman who is in no acute distress, alert upon exam, slow to mentate. HEENT: Normocephalic and atraumatic. Mucosa moist. NECK: Supple. No lymphadenopathy. LUNGS: Clear in upper ndiaye. HEART: Regular rate and rhythm. No murmurs, rubs or gallops. ABDOMEN: Benign, nontender, nondistended. Positive bowel sounds times 4. EXTREMITIES: He does have noted deficits from his previous CVA. NEUROLOGIC: Once again, he is limited on his mentation, but does follow commands. He does have noted weakness. He is having difficulty just getting around in a wheelchair at this time. LABORATORY DATA: White count is 5.2, H&H of 13 and 37, and platelet count was noted to be 196. His sodium is 139, potassium 3.9. BUN and creatinine of 12 and 0.6 and blood sugar is noted to be 87. ASSESSMENT: This is an 83-year-old gentleman admitted to the rehab with a working diagnosis of debility secondary to fall on previous cerebrovascular accident. The patient has potential to make improvement. We instituted the following multidisciplinary therapies including, not limited to physical, occupational, respiratory, speech, nutritional services, prosthetics and orthotics. Given his complex medical condition and risk for more complications, rehabilitation services not have a level of care such a skilled nurse facility. PLAN: 1. 1. Admit to [facility] for inpatient therapy to include the following disciplines: A. Physical therapy to improve gait, all transfer skills and bed mobility to a modified independent level. B. Occupational therapy to a modified independent level. C. Case management to assist with discharge planning and placement options. D. Nutrition to assist with nutritional needs. E. Rehabilitation nursing to assist in monitoring the patient's underlying medical conditions and to assist with any type of bowel or bladder management. 2. The patient's current medication will be continued. 3. The patient will be placed on standard fall precautions. 4. The patient's estimated length of stay is approximately 7-10 days. 5. We will discuss this patient during care team staff meeting this week. TRANSINT:[id number] Voice Confirmation ID: [id number] DOCUMENT ID: [id number] JUAN notes whether there has been none or any medical/functional change since admission: - No change since prescreen. JUAN attests patient continues to be appropriate for IRF: - Continues to be approriate. HISTORY AND PHYSICAL [id number] TILA MCCARTY,ABNER SEGOVIA MD at 1032 CC: [id number] DICTATION DATE: 01/20/19 0955 BUSINESS ANALYTICS FACULTY MEMBER: 01/20/19 1101 ADM IN [place] [address] [place] [address]
--- NOTE | 2019-01-28 12:00 | NUR ---
sitting up eating lunch
--- NOTE | 2019-01-28 13:05 | NUR ---
PUSLE OX CHECKED AFTER BEING OFF O2 3HRS.NOTED TO BE 87%. PULSE 78.PLACED ON O2 AT 2L/NC.
--- NOTE | 2019-01-28 13:15 | NUR ---
PULSE OX NOW 90-91%.WILL CONTINUE TO MONITOR.NO DISTRESS NOTED.
--- NOTE | 2019-01-28 15:10 | NUR ---
CARE TEAM MEETING: PATIENT PROGRESSING IN THERAPY. TENATIVE DISCHARGE DATE IS 01/30/19. WILL NEED HOME O2 AT DISCHARGE. WILL CONTINUE TO FOLLOW AND ADDRESS DISCHARGE PLANS NEEDED. 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
--- NOTE | 2019-01-28 19:15 | NUR ---
BEDSIDE SHIFT REPORT COMPLETE. LYING IN LEFT SIDE EYES CLOSED RESTING. RR EVEN AND UNLABORED. CONTINUES ON 2L VIA NC. CALL LIGHT WITHIN REACH,FALL PRECAUTIONS IN PLACE. WILL CONTINUE TO MONITOR
[2019-01-28 20:00] VITALS: BP 123/68
--- NOTE | 2019-01-29 00:49 | NUR ---
LYING IN BED SUPINE EYES CLOSED RESTING. NO SIGNS OF DISTRESS NOTED. WILL CONTINUE TO MONITOR
--- NOTE | 2019-01-29 02:46 | NUR ---
LYING ON LEFT SIDE EYES CLOSED RESTING. NO SIGNS OF DISTRESS NOTED. CONTINUES ON 2L VIA NC. WILL CONTINUE TO MONITOR
--- NOTE | 2019-01-29 06:32 | NUR ---
LYING IN BED WATCHING MORNING NEWS. DENIES ANY NEEDS OR PAIN. NO SIGNS OF DISTRESS NOTED. WILL CONTINUE TO MONITOR
[2019-01-29 08:00] VITALS: BP 154/86
--- NOTE | 2019-01-29 08:25 | NUR ---
SITTING UP IN WC IN ROOM FOR BREAKFAST. SLOW TO ANSWER AND FOLLOW COMMANDS BUT IS ALERT AND ORIENTED AND COOPERATIVE. DENIES PAIN. LEFT SIDE WEAKNESS NOTED. CALL LIGHT IN REACH
--- NOTE | 2019-01-29 13:10 | NUR ---
EATING LUNCH IN ROOM. IN ROOM VISITING WITH PT. CALL LIGHT IN REACH
--- NOTE | 2019-01-29 19:20 | NUR ---
BEDSIDE REPORT COMPLETE. SITTING UP IN W/C VISITING WITH . DENIES ANY NEEDS OR PAIN. NO SIGNS OF DISTRESS NOTED. CONTINUES ON 2L VIA NC. WILL CONTINUE TO MONITOR
[2019-01-29 20:00] VITALS: BP 125/62
--- NOTE | 2019-01-30 02:26 | NUR ---
QUIET HOURS. LYING IN BED ON RIGHT SIDE EYES CLOSED RESTING. RR EVEN AND UNLABORED. CONTINUES ON 2L VIA NC. WILL CONTINUE TO MONITOR
[2019-01-30 06:37] LABS: BASOPHILS 0.2 % (0-2); EOSINOPHILS 2.1 % (0-7); HEMATOCRIT 36.2 % (42.0-54.0); HEMOGLOBIN 12.6 g/dL (13.5-17.5); IMMATURE GRANULOCYTES 0.2 % (0-5); LYMPHOCYTES 20.1 % (15-50); MCH 33.7 pg (26.0-34.0); MCHC 34.8 g/dL (31.0-37.0); MCV 96.8 fL (80.0-100.0); MEAN PLATELET VOLUME 9.4 fL (7.4-10.4); MONOCYTES 16.5 % (2-11); NEUTROPHILS 60.9 % (40-80); PLATELET COUNT 210 10x3/uL (130-400); RBC 3.74 10x6/uL (4.20-6.10); RDW 14.2 % (11.5-14.5); WBC 5.3 10x3/uL (4.8-10.8)
[2019-01-30 06:55] LABS: CALC OSMOLALITY 275 mosm/kg (275-300); CALCIUM 8.4 mg/dL (8.5-10.1); CARBON DIOXIDE 29.7 mmol/L (21.0-32.0); CHLORIDE - SERUM 104 mmol/L (98-107); CREATININE - SERUM 0.6 mg/dL (0.6-1.3); GLUCOSE 84 mg/dL (74-106); SODIUM 138 mmol/L (136-145); UREA NITROGEN 15 mg/dL (7-18); eGFR NON AFRICAN AMERICAN > 90 mL/min (90-120)
[2019-01-30 08:17] VITALS: BP 169/91
--- NOTE | 2019-01-30 11:39 | NUR ---
Patient is to be discharged home today, his will pick him up. He has a walker. Home 02 with a portable tank has been ordered from [facility] per patient's choice. They will deliver the portable prior to his discharge. Home Health is set up with [facility] for SN, PT and OT. All information was picked up by Cesar Vieira this AM. Follow up appt has been set up with Dr Geronimo on 02/04/19 at 11:00 AM. Tracy Lake RN Clinical Liaison, Rehab
--- NOTE | 2019-01-30 14:00 | NUR ---
DC HOME WITH ALL PERSONAL BELONGINGS. IN ROOM WITH PT. [facility] DELIVERED PORTABLE OXYGEN TANK FOR PT. LEFT FLOOR IN . MEDS CALLED IN TO PHARMACY.
== END 2019-01-30 14:00 | disposition home or self-care (01) | DRG 948 ==
LOC: D.REHAB 16:54
PROVIDERS: ADMIT Emergency Medicine; ATTEND Emergency Medicine
DX: R53.81 Other malaise (principal); M62.50 Muscle wasting and atrophy, not elsewhere classified, unspecified site; F03.90 Unspecified dementia, unspecified severity, without behavioral disturbance, psychotic disturbance, mood disturbance, and anxiety; I10 Essential (primary) hypertension; R26.9 Unspecified abnormalities of gait and mobility; M06.9 Rheumatoid arthritis, unspecified